=== PATIENT | female | born 1950 | race American Indian/Alaskan Native ===

== ENCOUNTER 2019-05-20 17:23 | Emergency (ER) | payer MEDICARE, OTHER ==
--- NOTE | 2019-05-20 17:41 | Emergency Department Report ---
Blank Doc - Documentation Documentation: 68 y old female presents to ed with upper inner lip pain and lac that happened today while she tripped and fell
[2019-05-20 17:42] VITALS: BP 126/64
[2019-05-20] MEDS ORDERED: BOOSTRIX IM ONE (18:32)
--- NOTE | 2019-05-20 18:37 | Emergency Department Report ---
ED Laceration HPI - HPI Chief Complaint: Wound/Laceration Stated Complaint: LIP INJURY Time Seen by Provider: 05/20/19 17:39 Occurred When: Today Location: Head Severity: mild Tetanus Status: Not up to Date Laceration Symptoms: Yes Pain, No Foreign Body Sensation, No Numbness, No Weakness Other History: This is a 68-year-old female nontoxic, well nourished in appearance, no acute signs of distress presents to the ED with c/o of upper lip lac that occurred today. Stated had a mechinal fall and injured lip only. Den ies any head trauma or neck pains. Deneis any other complaints. Patient stated bleeding is under control. Denies any numbness, tingling, fever, chills, nausea, vomiting, chest pain, shortness of breath, headache or stiff neck. Patient said allergies to omeprazole and penicillin. Patient is that he is not up-to-date with tetanus. ED Review of Systems ROS: Stated complaint: LIP INJURY Other details as noted in HPI Constitutional: denies: chills, fever Eyes: denies: eye pain, eye discharge, vision change ENT: denies: ear pain, throat pain Respiratory: denies: cough, shortness of breath, wheezing Cardiovascular: denies: chest pain, palpitations Endocrine: no symptoms reported Gastrointestinal: denies: abdominal pain, nausea, diarrhea Genitourinary: denies: urgency, dysuria, discharge Musculoskeletal: denies: back pain, joint swelling, arthralgia Skin: denies: rash, lesions Neurological: denies: headache, weakness, paresthesias Psychiatric: denies: anxiety, depression Hematological/Lymphatic: denies: easy bleeding, easy bruising ED Past Medical Hx - Past Medical History Previous Medical History?: Yes Hx Hypertension: Yes (X 5 YRS) Hx Heart Attack/AMI: No Hx Diabetes: Yes Hx Liver Disease: No Hx Renal Disease: No Hx Arthritis: Yes (RA- ON STEROIDS) Hx Headaches / Migraines: (DUE TO NECK PAIN) Hx Seizures: No Hx Asthma: No Hx HIV: No - Social History Smoking Status: Current Every Day Smoker Substance Use Type: None - Medications Home Medications: Home Medications Medication Instructions Recorded Confirmed Last Taken Type Cetirizine HCl [Allergy Relief] 10 mg PO DAILY 02/26/18 02/26/18 03/09/18 History Gabapentin [Neurontin] 300 mg PO TID 02/26/18 02/26/18 03/10/18 05:30 History Losartan [Cozaar] 50 mg PO QDAY 02/26/18 02/26/18 03/10/18 05:30 History Pioglitazone [Actos] 15 mg PO QDAY 02/26/18 03/10/18 03/09/18 History amLODIPine [Norvasc] 5 mg PO DAILY 02/26/18 02/26/18 03/10/18 05:30 History valACYclovir [Valtrex] 500 mg PO BID 02/26/18 02/26/18 03/10/18 05:30 History Aspirin [Ecotrin] 325 mg PO PRN PRN 03/04/18 03/10/18 02/10/18 History Pravastatin [Pravachol] 20 mg PO QHS 03/04/18 03/04/18 03/09/18 History oxyCODONE /ACETAMINOPHEN [Percocet 1 tab PO Q6HR PRN #30 tablet 03/11/18 Unknown Rx 5/325] Acetaminophen/Codeine [Tylenol 1 tab PO Q6H PRN #12 tab 05/20/19 Unknown Rx /Codeine # 3 tab] Sulfamethoxazole/Trimethoprim 1 each PO BID #14 tablet 05/20/19 Unknown Rx [Bactrim DS TAB] Laceration Physical Exam - Exam General: Vital signs noted. No distress. Alert and acting appropriately. Wound Length (cm): 2 Laceration Location: Other (upper lip) Laceration Exam: Yes Normal Distal CMS, No Foreign Body, No Exposed Tendon, Vessel, or Nerve, No Tendon Injury ED Course Vital Signs 05/20/19 17:39 Temperature 98.1 F Pulse Rate 104 H Respiratory 20 Rate Blood Pressure 126/64 O2 Sat by Pulse 97 Oximetry - Reevaluation(s) Reevaluation #1: 05/20/19 18:34 Patient is speaking in full sentences with no signs of distress noted. - Laceration /Wound Repair Face Wound Location: face (upper lip) Wound Length (cm): 2 Wound's Depth, Shape: linear Wound Explored: clean Irrigated w/ Saline (ccs): 40 Betadine Prep?: Yes Anesthesia: 1% Lidocaine Volume Anesthetic (ccs): 3 Wound Repaired With: sutures Suture Size/Type: 4:0, proline Number of Sutures: 4 Layer Closure?: No Sterile Dressing Applied?: Yes Progress: Under sterile field, I used Betadine to clean the area. I then used 40 mL of normal saline to flush the area. I then used 1% lidocaine plain and injected 3 mL to the wound. I then used a 4-0 Prolene to suture the laceration. Number of stitches 4. I then applied a sterile 4 x 4 with tape. Minimal bleeding noted but is under control. Patient tolerated procedure well with no signs of distress. ED Medical Decision Making - Medical Decision Making This is a 68-year-old female that presents with laceration. Patient is stable and was examined by me. The laceration suturing has been performed and has been performed and patient tolerated well. A sterile dressing has been applied. Patient was educated on proper wound care. Patient is discharged with bactrim (due to PCN allergies) and Tylenol with codeine and was instructed not to operate any machinery while taking Tylenol with codeine due to drowsiness. Patient was instructed to return in 7 days for suture removal. Patient was instructed to refer to Follow-up with a primary care doctor in 3-5 days or if symptoms worsen and continue return to emergency room as soon as possible. At time of discharge, the patient does not seem toxic or ill in appearance. No acute signs of distress noted. Patient agrees to discharge treatment plan of care. No further questions noted by the patient. Critical care attestation.: If time is entered above; I have spent that time in minutes in the direct care of this critically ill patient, excluding procedure time. ED Disposition Clinical Impression: Laceration Disposition: DC-01 TO HOME OR SELFCARE Is pt being admited?: No Does the pt Need Aspirin: No Condition: Stable Instructions: Laceration (ED), Suture Care (ED), Acetaminophen/Codeine (By mouth) Additional Instructions: Follow-up with a primary care doctor in 3-5 days or if symptoms worsen and continue return to emergency room as soon as possible. Return in 7 days for suture removal. Do not operate any machinery while taking Tylenol with codeine as this may cause drowsiness. Prescriptions: Sulfamethoxazole/Trimethoprim [Bactrim DS TAB] 1 each PO BID #14 tablet Acetaminophen/Codeine [Tylenol /Codeine # 3 tab] 1 tab PO Q6H PRN #12 tab PRN Reason: Pain , Severe (7-10) Referrals: PRIMARY CARE, [Referring] - 3-5 Days QASIM IBARRA MD [Staff Physician] - 3-5 Days [facility] [Outside] - 3-5 Days [facility] [Outside] - 3-5 Days
== END 2019-05-20 19:00 | disposition home or self-care (01) ==
LOC: ED 17:23
DX: S01.511A Laceration without foreign body of lip, initial encounter (principal); I10 Essential (primary) hypertension; E11.9 Type 2 diabetes mellitus without complications; M06.9 Rheumatoid arthritis, unspecified; G43.909 Migraine, unspecified, not intractable, without status migrainosus; F17.200 Nicotine dependence, unspecified, uncomplicated; W18.30XA Fall on same level, unspecified, initial encounter; Y93.89 Activity, other specified; Y92.89 Other specified places as the place of occurrence of the external cause; Y99.8 Other external cause status
CPT/HCPCS: 90471; 90715

== ENCOUNTER 2019-05-26 19:27 | Emergency (ER) | payer MEDICARE, OTHER ==
[2019-05-26 20:01] VITALS: BP 121/60
--- NOTE | 2019-05-26 20:13 | Emergency Department Report ---
Suture/Staple Removal - [facility] Chief Complaint: Wound/Laceration Stated Complaint: STICHES REMOVAL Time Seen by Provider: 05/26/19 20:07 When Sutures or [place] Placed: 5-7 Days Ago ED Review of Systems ROS: Stated complaint: STICHES REMOVAL Other details as noted in HPI ED Past Medical Hx - Past Medical History Previous Medical History?: Yes Hx Hypertension: Yes (X 5 YRS) Hx Heart Attack/AMI: No Hx Diabetes: Yes Hx Liver Disease: No Hx Renal Disease: No Hx Arthritis: Yes (RA- ON STEROIDS) Hx Headaches / Migraines: (DUE TO NECK PAIN) Hx Seizures: No Hx Asthma: No Hx HIV: No - Surgical History Past Surgical History?: Yes - Social History Smoking Status: Current Every Day Smoker Substance Use Type: None - Medications Home Medications: Home Medications Medication Instructions Recorded Confirmed Last Taken Type Cetirizine HCl [Allergy Relief] 10 mg PO DAILY 02/26/18 02/26/18 03/09/18 History Gabapentin [Neurontin] 300 mg PO TID 02/26/18 02/26/18 03/10/18 05:30 History Losartan [Cozaar] 50 mg PO QDAY 02/26/18 02/26/18 03/10/18 05:30 History Pioglitazone [Actos] 15 mg PO QDAY 02/26/18 03/10/18 03/09/18 History amLODIPine [Norvasc] 5 mg PO DAILY 02/26/18 02/26/18 03/10/18 05:30 History valACYclovir [Valtrex] 500 mg PO BID 02/26/18 02/26/18 03/10/18 05:30 History Aspirin [Ecotrin] 325 mg PO PRN PRN 03/04/18 03/10/18 02/10/18 History Pravastatin [Pravachol] 20 mg PO QHS 03/04/18 03/04/18 03/09/18 History oxyCODONE /ACETAMINOPHEN [Percocet 1 tab PO Q6HR PRN #30 tablet 03/11/18 Unknown Rx 5/325] Acetaminophen/Codeine [Tylenol 1 tab PO Q6H PRN #12 tab 05/20/19 Unknown Rx /Codeine # 3 tab] Sulfamethoxazole/Trimethoprim 1 each PO BID #14 tablet 05/20/19 Unknown Rx [Bactrim DS TAB] Suture Removal Exam - Exam General: Vital signs noted. No distress. Alert and acting appropriately. Other Systems: All other systems reviewed and are unremarkable. ED Course Vital Signs 05/26/19 20:00 Temperature 98.2 F Pulse Rate 94 H Respiratory 16 Rate Blood Pressure 121/60 O2 Sat by Pulse 94 Oximetry Critical care attestation.: If time is entered above; I have spent that time in minutes in the direct care of this critically ill patient, excluding procedure time. ED Disposition Clinical Impression: Encounter for removal of sutures Disposition: DC-01 TO HOME OR SELFCARE Is pt being admited?: No Does the pt Need Aspirin: No Condition: Stable Instructions: Suture Removal (ED)
== END 2019-05-26 20:24 | disposition home or self-care (01) ==
LOC: ED 19:27
DX: Z48.02 Encounter for removal of sutures (principal); I10 Essential (primary) hypertension; E11.9 Type 2 diabetes mellitus without complications; G43.909 Migraine, unspecified, not intractable, without status migrainosus; F17.200 Nicotine dependence, unspecified, uncomplicated; M06.9 Rheumatoid arthritis, unspecified; Z79.52 Long term (current) use of systemic steroids; Z88.0 Allergy status to penicillin; Z88.8 Allergy status to other drugs, medicaments and biological substances; Z79.899 Other long term (current) drug therapy

== ENCOUNTER 2020-05-02 07:36 | Day surgery (SDC) | payer MEDICARE, OTHER ==
[2020-05-02 09:01] LABS: Basophils # (Auto) 0.1 K/mm3 (0.0-0.1); Basophils % (Auto) 0.8 % (0.0-1.8); Eosinophils # (Auto) 0.2 K/mm3 (0.0-0.4); Eosinophils % (Auto) 3.3 % (0.0-4.3); Hematocrit 39.2 % (30.3-42.9); Hemoglobin 12.8 gm/dl (10.1-14.3); Lymphocytes # (Auto) 1.5 K/mm3 (1.2-5.4); Lymphocytes % (Auto) 23.7 % (13.4-35.0); Mean Corpuscular HGB Conc 33 % (30-34); Mean Corpuscular Volume 84 fl (79-97); Monocytes # (Auto) 0.7 K/mm3 (0.0-0.8); Monocytes % (Auto) 11.4 % (0.0-7.3); Platelet Count 159 K/mm3 (140-440); Red Blood Count 4.66 M/mm3 (3.65-5.03); Red Cell Distribution Width 15.2 % (13.2-15.2)
[2020-05-02 09:12] LABS: INR 0.99 (0.87-1.13)
[2020-05-02 09:14] LABS: BUN/Creatinine Ratio 23; Blood Urea Nitrogen 16 mg/dL (7-17); Calcium 9.2 mg/dL (8.4-10.2); Hemolysis Index 4
[2020-05-02 13:49] VITALS: BP 103/44
== END 2020-05-02 15:20 | disposition home or self-care (01) ==
LOC: CATHLABREC 07:36
PROVIDERS: ATTEND Internal Medicine
DX: R94.39 Abnormal result of other cardiovascular function study (principal); I70.0 Atherosclerosis of aorta; I10 Essential (primary) hypertension; E78.5 Hyperlipidemia, unspecified; G95.9 Disease of spinal cord, unspecified; R73.03 Prediabetes; H40.9 Unspecified glaucoma; F17.210 Nicotine dependence, cigarettes, uncomplicated; I73.9 Peripheral vascular disease, unspecified; M06.9 Rheumatoid arthritis, unspecified; F41.9 Anxiety disorder, unspecified; Z91.81 History of falling; Z88.0 Allergy status to penicillin; Z79.82 Long term (current) use of aspirin; Z79.899 Other long term (current) drug therapy; Z85.3 Personal history of malignant neoplasm of breast; Z90.10 Acquired absence of unspecified breast and nipple; Z90.710 Acquired absence of both cervix and uterus; Z86.2 Personal history of diseases of the blood and blood-forming organs and certain disorders involving the immune mechanism; Z88.8 Allergy status to other drugs, medicaments and biological substances
CPT/HCPCS: 36415; 80048; 85025; 85610; 85730; 93005; 93458; 93567; 99156; C1894; J1644; J2250; J3010; J7040; Q9967